=== PATIENT | female | born 2000 | race American Indian/Alaskan Native ===

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

== ENCOUNTER 2018-02-24 17:05 | Outpatient (CLI) | payer MEDICAID, OTHER ==
[2018-02-24 18:32] LABS: Amorphous Crystals,Urine Few; Bacteria,Urine 2+ /HPF (Negative); Bilirubin,Urine NEG (Negative); Blood,Urine NEG (Negative); Calcium Oxalate Crystals,Urine 3+; Color,Urine Yellow (Yellow); Mucus,Urine 1+ /HPF
[2018-02-24 18:35] VITALS: BP 109/64
[2018-02-24] MEDS ORDERED: TYLENOL PO ONE (19:06)
== END 2018-02-24 19:20 | disposition home or self-care (01) ==
LOC: TRG 17:05
PROVIDERS: ATTEND Obstetrics & Gynecology
DX: O47.03 False labor before 37 completed weeks of gestation, third trimester (principal); Z3A.31 31 weeks gestation of pregnancy
CPT/HCPCS: 59025; 81001

== ENCOUNTER 2018-03-23 07:47 | Outpatient (CLI) | payer MEDICAID ==
[2018-03-23 08:50] LABS: Bacteria,Urine 4+ /HPF (Negative); Bilirubin,Urine NEG (Negative); Blood,Urine NEG (Negative); Color,Urine Yellow (Yellow); Mucus,Urine FEW /HPF; Protein,Urine <15 mg/dL mg/dL (Negative); Urobilinogen,Urine < 2.0 mg/dL (<2.0)
[2018-03-23] MEDS ORDERED: LACTATED RINGERS 500 ML IV ONE (09:00)
[2018-03-23 09:18] VITALS: BP 107/63
[2018-03-23] MEDS ORDERED: TYLENOL PO PRN (09:27)
--- NOTE | 2018-03-24 06:56 | Ultrasound Report ---
FINAL REPORT EXAM: US OB > = 14 WEEKS FETUS HISTORY: well being COMPARISONS: None. FINDINGS: Transabdominal grayscale, color Doppler and M-mode 3rd trimester limited ultrasound Single living intrauterine in cephalic presentation with recorded cardiac activity of 138 beats per minute. The placenta is posterior. No evident previa on this examination. The cervix appears closed and measures approximately 4 cm in length. A 13 millimeter hypoechoic nonvascular areas noted within the posterior fundal portion of the placenta, which most likely represents a venous mello. Amniotic fluid volume is subjectively normal and amniotic fluid index is approximately 9 cm. Biparietal diameter is 8.5 cm Head circumference is 31.1 cm Abdominal circumference is 30 cm Femoral length is 7 cm Composite measurements results in estimated gestational age of 34 weeks 5 days, which is concordant with prior established dating of 35 weeks 0 days Estimated weight is 2454 grams, which corresponds to the 33rd percentile. IMPRESSION: Single living intrauterine with normal amniotic fluid index and concordant size and dates, as detailed above.
== END 2018-03-23 12:29 | disposition home or self-care (01) ==
LOC: TRG 07:47
PROVIDERS: ATTEND Obstetrics & Gynecology Gynecology
DX: O47.03 False labor before 37 completed weeks of gestation, third trimester (principal); Z3A.35 35 weeks gestation of pregnancy
CPT/HCPCS: 59025; 76805; 81001

== ENCOUNTER 2018-04-07 00:55 | Outpatient (CLI) | payer MEDICAID ==
[2018-04-07] MEDS ORDERED: LACTATED RINGERS 1,000 ML ONE (01:43)
[2018-04-07] MEDS ORDERED: LACTATED RINGERS 1,000 ML IV ONE (01:54)
[2018-04-07 01:57] LABS: Bilirubin,Urine NEG (Negative); Blood,Urine NEG (Negative); Color,Urine Yellow (Yellow); Protein,Urine <15 mg/dL mg/dL (Negative); Urobilinogen,Urine < 2.0 mg/dL (<2.0)
[2018-04-07 02:41] VITALS: BP 121/72
== END 2018-04-07 02:55 | disposition home or self-care (01) ==
LOC: TRG 00:55
PROVIDERS: ATTEND Obstetrics & Gynecology
DX: O26.893 Other specified pregnancy related conditions, third trimester (principal); O47.1 False labor at or after 37 completed weeks of gestation; R51 Headache; Z3A.37 37 weeks gestation of pregnancy
CPT/HCPCS: 59025; 81001; 96360; J7120

== ENCOUNTER 2018-05-18 18:56 | Emergency (ER) | payer MEDICAID ==
[2018-05-18 19:15] VITALS: BP 130/79
== END 2018-05-18 22:37 | disposition left against medical advice (07) ==
LOC: ED 18:56
DX: Z53.21 Procedure and treatment not carried out due to patient leaving prior to being seen by health care provider (principal)

== ENCOUNTER 2019-01-16 11:12 | Outpatient (CLI) | payer MEDICAID ==
[2019-01-16] MEDS ORDERED: IMODIUM PO STA (11:48)
[2019-01-16 11:54] VITALS: BP 103/53
[2019-01-16] MEDS ORDERED: LACTATED RINGERS 500 ML IV ONE (12:00)
[2019-01-16 12:26] LABS: Bilirubin,Urine NEG (Negative); Blood,Urine NEG (Negative); Color,Urine Yellow (Yellow); Mucus,Urine FEW /HPF; Protein,Urine <15 mg/dL mg/dL (Negative)
[2019-01-16 12:32] LABS: Amphetamine Screen,Urine PRESUMPTIVE NEGATIVE; Benzodiazepines Screen,Urine PRESUMPTIVE NEGATIVE; Cocaine Screen,Urine PRESUMPTIVE NEGATIVE; Methadone Screen,Urine PRESUMPTIVE NEGATIVE; Opiate Screen,Urine PRESUMPTIVE NEGATIVE
[2019-01-16 12:48] LABS: Cannabinoid Screen,Urine PRESUMPTIVE POSITIVE
== END 2019-01-16 14:09 | disposition home or self-care (01) ==
LOC: TRG 11:12
PROVIDERS: ATTEND Obstetrics & Gynecology
DX: O47.02 False labor before 37 completed weeks of gestation, second trimester (principal); Z3A.20 20 weeks gestation of pregnancy
CPT/HCPCS: 80307; 81001; 96360; J7120

== ENCOUNTER 2019-03-13 20:56 | Outpatient (CLI) | payer MEDICAID, OTHER ==
[2019-03-13] MEDS ORDERED: LACTATED RINGERS 1,000 ML IV ONE (21:01)
[2019-03-13 22:16] LABS: Bacteria,Urine 1+ /HPF (Negative); Bilirubin,Urine NEG (Negative); Blood,Urine NEG (Negative); Color,Urine Yellow (Yellow); Mucus,Urine FEW /HPF; Protein,Urine <15 mg/dL mg/dL (Negative)
[2019-03-13] MEDS ORDERED: XYLOCAINE 1% MPF 5 mL INFILTRATI ONE (22:35)
[2019-03-13] MEDS ORDERED: ROCEPHIN/NS 1 GM/50 ML 1 GM/50 ML BAG IV ONE (22:45)
[2019-03-13 23:32] VITALS: BP 105/57
== END 2019-03-13 23:58 | disposition home or self-care (01) ==
LOC: TRG 20:56
PROVIDERS: ATTEND Obstetrics & Gynecology
DX: O26.893 Other specified pregnancy related conditions, third trimester (principal); M54.5 Low back pain; M79.651 Pain in right thigh; Z3A.28 28 weeks gestation of pregnancy; Z87.891 Personal history of nicotine dependence
CPT/HCPCS: 59025; 81001; 96361; 96365; J0696; J7120; 96360

== ENCOUNTER 2019-04-06 18:33 | Outpatient (CLI) | payer OTHER ==
[2019-04-06 20:39] VITALS: BP 99/59
[2019-04-06 21:51] LABS: Amorphous Crystals,Urine 2+; Bilirubin,Urine NEG (Negative); Blood,Urine SM (Negative); Color,Urine Yellow (Yellow); Mucus,Urine FEW /HPF; Protein,Urine <15 mg/dL mg/dL (Negative)
[2019-04-06] MEDS ORDERED: LACTATED RINGERS 1,000 ML IV ONE (22:46)
[2019-04-06] MEDS ORDERED: ANCEF/NS 1 GM/50 ML 1 GM/50 ML BAG IV ONE (23:45)
== END 2019-04-06 23:55 | disposition home or self-care (01) ==
LOC: TRG 18:33
PROVIDERS: ATTEND Obstetrics & Gynecology
DX: O26.893 Other specified pregnancy related conditions, third trimester (principal); R10.2 Pelvic and perineal pain; O47.03 False labor before 37 completed weeks of gestation, third trimester; O99.343 Other mental disorders complicating pregnancy, third trimester; F41.0 Panic disorder [episodic paroxysmal anxiety]; Z87.891 Personal history of nicotine dependence; Z3A.31 31 weeks gestation of pregnancy
CPT/HCPCS: 59025; 81001; 87086; 96365; J0690; J7120; 96360; 96366

== ENCOUNTER 2019-06-09 10:22 | Emergency (ER) | payer MEDICAID, OTHER ==
[2019-06-09 10:45] VITALS: BP 112/39
--- NOTE | 2019-06-09 11:37 | Emergency Department Report ---
ED General Adult HPI - General Chief complaint: Wound/Laceration Stated complaint: C SECTION/HEADACHE/STOMACH PAIN Time Seen by Provider: 06/09/19 11:23 Source: patient Mode of arrival: Wheelchair Limitations: No Limitations - History of Present Illness Initial comments: Patient is 18 years old female with no significant past medical history. Patient is 7 days . Status post at [facility]. Patient presented to the ER stating that she is having drainage from her surgical scar. Patient think that her surgical scar is open. Patient denied any fever or chills. Patient also denied any nausea or vomiting. - Related Data Home Medications Medication Instructions Recorded Confirmed Last Taken Aspirin [Aspirin BABY CHEW TAB] 81 mg PO QDAY 03/13/19 03/13/19 2 Days Ago ~03/11/19 Allergies Allergy/AdvReac Type Severity Reaction Status Date / Time No Known Allergies Allergy Verified 06/09/19 10:23 ED Review of Systems ROS: Stated complaint: C SECTION/HEADACHE/STOMACH PAIN Other details as noted in HPI Comment: All other systems reviewed and negative Constitutional: denies: chills, fever Respiratory: denies: cough, shortness of breath, SOB with exertion Cardiovascular: denies: chest pain, palpitations Gastrointestinal: denies: abdominal pain, nausea, vomiting, diarrhea, constipation, hematemesis Musculoskeletal: denies: back pain ED Past Medical Hx - Past Medical History Previous Medical History?: Yes Hx Hypertension: No Hx CVA: No Hx Diabetes: No Hx Deep Vein Thrombosis: No Hx Renal Disease: No Hx Sickle Cell Disease: No Hx Seizures: No Hx Asthma: No Hx HIV: No Additional medical history: obesity, heart failure 03/2018 r/t pregnany and childbirth - Surgical History Past Surgical History?: Yes Additional Surgical History: tonsillectomy, - Social History Smoking Status: Never Smoker Substance Use Type: None - Medications Home Medications: Home Medications Medication Instructions Recorded Confirmed Last Taken Type Aspirin [Aspirin BABY CHEW TAB] 81 mg PO QDAY 03/13/19 03/13/19 2 Days Ago History ~03/11/19 ED Physical Exam - General Limitations: No Limitations General appearance: alert, in no apparent distress - Head Head exam: Present: atraumatic, normocephalic, normal inspection - Eye Eye exam: Present: normal appearance - ENT ENT exam: Present: normal exam, normal orophraynx, mucous membranes moist - Neck Neck exam: Present: normal inspection. Absent: tenderness, meningismus - Respiratory Respiratory exam: Present: normal lung sounds bilaterally - Cardiovascular Cardiovascular Exam: Present: regular rate, normal rhythm, normal heart sounds - GI/Abdominal GI/Abdominal exam: Present: soft, normal bowel sounds, other ( section surgical scar is slightly elevated with greenish discharge but no wound dehiscence.). Absent: distended, tenderness, guarding, rebound, rigid - Extremities Exam Extremities exam: Present: normal inspection, full ROM, normal capillary refill - Back Exam Back exam: Present: normal inspection, full ROM. Absent: CVA tenderness (R), CVA tenderness (L), muscle spasm, paraspinal tenderness, vertebral tenderness - Neurological Exam Neurological exam: Present: alert, oriented X3, CN II-XII intact - Psychiatric Psychiatric exam: Present: normal mood - Skin Skin exam: Present: warm ED Course Vital Signs 06/09/19 10:41 Temperature 98.4 F Pulse Rate 63 Respiratory 16 Rate Blood Pressure 112/39 [Left] O2 Sat by Pulse 96 Oximetry ED Medical Decision Making - Lab Data Result diagrams: 06/09/19 11:41 06/09/19 11:41 - Medical Decision Making Patient is 18 years old female with no significant past medical history. Patient is 7 days . Status post at [facility]. Patient presented to the ER stating that she is having drainage from her surgical scar. Patient think that her surgical scar is open. Patient denied any fever or chills. Patient also denied any nausea or vomiting. section wound examined and no evidence of wound dehiscence but there is a slight greenish discharge. Labs reviewed and is unremarkable. Patient will be treated with clindamycin and advised to follow-up with our OB doctor in the next 2-3 days and also advised to return to the ER if started developing any other symptoms or her symptoms are not improved. Critical care attestation.: If time is entered above; I have spent that time in minutes in the direct care of this critically ill patient, excluding procedure time. ED Disposition Clinical Impression: Surgical wound infection Disposition: DC-01 TO HOME OR SELFCARE Is pt being admited?: No Condition: Stable Instructions: Wound Infection (ED) Additional Instructions: Please follow up with your OB doctor in the next 2-3 days. Referrals: PRIMARY CARE, [Primary Care Provider] - 3-5 Days
[2019-06-09] MEDS ORDERED: MORPHINE IM ONE (11:40)
[2019-06-09 11:50] LABS: Basophils % (Auto) 0.5 % (0.0-1.8); Eosinophils # (Auto) 0.2 K/mm3 (0.0-0.4); Eosinophils % (Auto) 2.6 % (0.0-4.3); Hematocrit 32.7 % (30.3-42.9); Lymphocytes # (Auto) 2.5 K/mm3 (1.2-5.4); Mean Corpuscular HGB Conc 34 % (30-34); Mean Corpuscular Volume 79 fl (79-97); Monocytes # (Auto) 0.8 K/mm3 (0.0-0.8); Monocytes % (Auto) 9.4 % (0.0-7.3); Platelet Count 204 K/mm3 (140-440); Red Blood Count 4.14 M/mm3 (3.65-5.03); Red Cell Distribution Width 15.8 % (13.2-15.2)
[2019-06-09 12:04] LABS: Alanine Aminotransferase 10 units/L (7-56); Albumin 3.4 g/dL (3.9-5); BUN/Creatinine Ratio 10; Blood Urea Nitrogen 6 mg/dL (7-17); Calcium 8.9 mg/dL (8.4-10.2); Hemolysis Index 6
== END 2019-06-09 12:55 | disposition home or self-care (01) ==
LOC: ED 10:22
DX: O86.01 Infection of obstetric surgical wound, superficial incisional site (principal); Z98.890 Other specified postprocedural states; Z79.82 Long term (current) use of aspirin
CPT/HCPCS: 36415; 80053; 85025; 96372; 99283; J2270

== ENCOUNTER 2020-01-10 18:50 | Emergency (ER) | payer SELFPAY ==
--- NOTE | 2020-01-10 20:06 | Event Note ---
ED Screening Note Date of service: 01/10/20 Time: 20:01 ED Screening Note: This initial assessment/diagnostic orders/clinical plan/treatment(s) is/are subject to change based on patients health status, clinical progression and re- assessment by fellow clinical providers in the ED. Further treatment and workup at subsequent clinical providers discretion. Patient/guardian urged not to elope from the ED as their condition may be serious if not clinically assessed and managed. Initial orders include: 19yo F states that she has flu-like symptoms, SOB and difficulty breathing that have been present for 2 weeks. She states that coughing and inhaling makes her chest hurt worse.
[2020-01-10] MEDS ORDERED: HYOSCYAMINE SUBL 0.125 MG TAB SL ONE (21:11)
[2020-01-10] MEDS ORDERED: ONDANSETRON 4 MG ODT TAB PO ONE (21:11)
--- NOTE | 2020-01-10 21:29 | Emergency Department Report ---
- General Chief Complaint: Upper Respiratory Infection Stated Complaint: FEVER,BODYACHES,HOT & COLD Time Seen by Provider: 01/10/20 20:00 Source: patient Mode of arrival: Ambulatory Limitations: No Limitations - History of Present Illness Initial Comments: Patient is a 19-year-old female presents emergency room complaints of a fever that began yesterday. She states that yesterday she also had nausea, vomiting, diarrhea. She denies any vomiting or diarrhea today. She is able to tolerate p.o. intake. She states that she has also had a productive cough for few days. She states that she also has some suprapubic abdominal discomfort. She denies any sore throat, ear pain, urinary symptoms. She denies any known sick contacts or recent travel. She has a past medical history of cardiomyopathy. No allergies to medications. Last menstrual cycle December 23, 2019. - Related Data Home Medications Medication Instructions Recorded Confirmed Last Taken Aspirin [Aspirin BABY CHEW TAB] 81 mg PO QDAY 03/13/19 03/13/19 2 Days Ago ~03/11/19 Previous Rx's Medication Instructions Recorded Last Taken Type Clindamycin [Clindamycin CAP] 300 mg PO Q8H #21 cap 06/09/19 Unknown Rx Ondansetron [Zofran Odt] 4 mg PO Q8HR PRN #14 tab.rapdis 06/09/19 Unknown Rx traMADoL [Ultram 50 MG tab] 50 mg PO Q4HR PRN #14 tablet 06/09/19 Unknown Rx Ondansetron [Zofran Odt] 4 mg PO Q8HR PRN #14 tab.rapdis 01/10/20 Unknown Rx Allergies Allergy/AdvReac Type Severity Reaction Status Date / Time No Known Allergies Allergy Verified 06/09/19 10:23 ED Review of Systems ROS: Stated complaint: FEVER,BODYACHES,HOT & COLD Other details as noted in HPI Comment: All other systems reviewed and negative ED Past Medical Hx - Past Medical History Previous Medical History?: Yes Hx Hypertension: No Hx CVA: No Hx Diabetes: No Hx Deep Vein Thrombosis: No Hx Renal Disease: No Hx Sickle Cell Disease: No Hx Seizures: No Hx Asthma: No Hx HIV: No Additional medical history: obesity, heart failure 03/2018 r/t pregnany and childbirth - Surgical History Past Surgical History?: Yes Additional Surgical History: tonsillectomy, - Social History Smoking Status: Current Every Day Smoker Substance Use Type: Alcohol - Medications Home Medications: Home Medications Medication Instructions Recorded Confirmed Last Taken Type Aspirin [Aspirin BABY CHEW TAB] 81 mg PO QDAY 03/13/19 03/13/19 2 Days Ago History ~03/11/19 Clindamycin [Clindamycin CAP] 300 mg PO Q8H #21 cap 06/09/19 Unknown Rx Ondansetron [Zofran Odt] 4 mg PO Q8HR PRN #14 tab.rapdis 06/09/19 Unknown Rx traMADoL [Ultram 50 MG tab] 50 mg PO Q4HR PRN #14 tablet 06/09/19 Unknown Rx Ondansetron [Zofran Odt] 4 mg PO Q8HR PRN #14 tab.rapdis 01/10/20 Unknown Rx ED Physical Exam - General Limitations: No Limitations General appearance: alert, in no apparent distress - Head Head exam: Present: atraumatic, normocephalic - Eye Eye exam: Present: normal appearance - ENT ENT exam: Present: normal orophraynx, mucous membranes moist, TM's normal bilaterally, normal external ear exam - Respiratory Respiratory exam: Present: normal lung sounds bilaterally. Absent: respiratory distress, wheezes, rhonchi, stridor, chest wall tenderness, accessory muscle use, decreased breath sounds, prolonged expiratory - Cardiovascular Cardiovascular Exam: Present: regular rate, normal rhythm, normal heart sounds. Absent: systolic murmur, diastolic murmur, rubs, gallop - GI/Abdominal GI/Abdominal exam: Present: soft, normal bowel sounds. Absent: distended, tenderness, guarding, rebound, rigid - Neurological Exam Neurological exam: Present: alert, oriented X3 - Psychiatric Psychiatric exam: Present: normal affect, normal mood - Skin Skin exam: Present: warm, dry, intact ED Course Vital Signs 01/10/20 01/10/20 19:53 22:34 Temperature 99.9 F H 98.6 F Pulse Rate 79 54 L Respiratory 16 16 Rate Blood Pressure 100/62 111/82 [Right] O2 Sat by Pulse 99 100 Oximetry ED Medical Decision Making - Lab Data Result diagrams: 01/10/20 21:14 01/10/20 21:14 Lab Results 01/10/20 01/10/20 01/10/20 Range/Units 21:14 21:14 21:14 WBC 5.1 (4.5-11.0) K/mm3 RBC 4.45 (3.65-5.03) M/mm3 Hgb 12.3 (10.1-14.3) gm/dl Hct 38.3 (30.3-42.9) % MCV 86 (79-97) fl MCH 28 (28-32) pg MCHC 32 (30-34) % RDW 16.5 H (13.2-15.2) % Plt Count 111 L (140-440) K/mm3 [place] % (Auto) Party Plan Sales Director Add Manual Diff Complete Total Counted 100 Seg Neuts % (Manual) 55.0 (40.0-70.0) % Band Neutrophils % 0 % Lymphocytes % (Manual) 28.0 (13.4-35.0) % Reactive Lymphs % (Man) 0 % Monocytes % (Manual) 14.0 H (0.0-7.3) % Eosinophils % (Manual) 1.0 (0.0-4.3) % Basophils % (Manual) 2.0 H (0.0-1.8) % Metamyelocytes % 0 % Myelocytes % 0 % Promyelocytes % 0 % Blast Cells % 0 % Nucleated RBC % Not Reportable Seg Neutrophils # Man 2.8 (1.8-7.7) K/mm3 Band Neutrophils # 0.0 K/mm3 Lymphocytes # (Manual) 1.4 (1.2-5.4) K/mm3 Abs React Lymphs (Man) 0.0 K/mm3 Monocytes # (Manual) 0.7 (0.0-0.8) K/mm3 Eosinophils # (Manual) 0.1 (0.0-0.4) K/mm3 Basophils # (Manual) 0.1 (0.0-0.1) K/mm3 Metamyelocytes # 0.0 K/mm3 Myelocytes # 0.0 K/mm3 Promyelocytes # 0.0 K/mm3 Blast Cells # 0.0 K/mm3 WBC Morphology Not Reportable Hypersegmented Neuts Not Reportable Hyposegmented Neuts Not Reportable Hypogranular Neuts Not Reportable Smudge Cells Not Reportable Toxic Granulation Not Reportable Toxic Vacuolation Not Reportable Dohle Bodies Not Reportable Pelger-Huet Anomaly Not Reportable Joao Rods Not Reportable Platelet Estimate Consistent w auto Clumped Platelets Not Reportable Plt Clumps, EDTA Not Reportable Large Platelets Not Reportable Giant Platelets Not Reportable Platelet Satelliting Not Reportable Plt Morphology Comment Not Reportable RBC Morphology Not Reportable Dimorphic RBCs Not Reportable Polychromasia Not Reportable Hypochromasia Not Reportable Poikilocytosis Not Reportable Anisocytosis Few Microcytosis Not Reportable Macrocytosis Not Reportable Spherocytes Not Reportable Pappenheimer Bodies Not Reportable Sickle Cells Not Reportable Target Cells Not Reportable Tear Drop Cells Not Reportable Ovalocytes Not Reportable Stomatocytes Rare Helmet Cells Not Reportable [place] Bodies Not Reportable Stilwell Rings Not Reportable [place] Cells Not Reportable Bite Cells Not Reportable Crenated Cell Not Reportable Elliptocytes Not Reportable Acanthocytes (Spur) Not Reportable Rouleaux Not Reportable Hemoglobin C Crystals Not Reportable Schistocytes Not Reportable Malaria parasites Not Reportable Adam Bodies Not Reportable Hem Pathologist Commnt No Sodium 138 (137-145) mmol/L Potassium 4.0 (3.6-5.0) mmol/L Chloride 103.3 (98-107) mmol/L Carbon Dioxide 20 L (22-30) mmol/L Anion Gap 19 mmol/L BUN 7 (7-17) mg/dL Creatinine 0.6 L (0.7-1.2) mg/dL Estimated GFR > 60 ml/min BUN/Creatinine Ratio 12 % Glucose 80 (65-100) mg/dL Calcium 8.3 L (8.4-10.2) mg/dL Total Bilirubin 0.20 (0.1-1.2) mg/dL AST 23 (5-40) units/L ALT 22 (7-56) units/L Alkaline Phosphatase 68 (35-129) units/L Total Protein 7.1 (6.3-8.2) g/dL Albumin 3.9 (3.9-5) g/dL Albumin/Globulin Ratio 1.2 % Lipase 20 (13-60) units/L HCG, Qual Negative (Negative) Urine Color (Yellow) Urine Turbidity (Clear) Urine pH (5.0-7.0) Ur Specific [place] (1.003-1.030) Urine Protein (Negative) mg/dL Urine Glucose (UA) (Negative) mg/dL Urine Ketones (Negative) mg/dL Urine Blood (Negative) Urine Nitrite (Negative) Urine Bilirubin (Negative) Urine Urobilinogen (<2.0) mg/dL Ur Leukocyte Esterase (Negative) Urine WBC (Auto) (0.0-6.0) /HPF Urine RBC (Auto) (0.0-6.0) /HPF U Epithel Cells (Auto) (0-13.0) /HPF Urine Mucus /HPF Urine HCG, Qual (Negative) Influenza A (Rapid) (Negative) Influenza B (Rapid) (Negative) 01/10/20 01/10/20 Range/Units Unknown Unknown WBC (4.5-11.0) K/mm3 RBC (3.65-5.03) M/mm3 Hgb (10.1-14.3) gm/dl Hct (30.3-42.9) % MCV (79-97) fl MCH (28-32) pg MCHC (30-34) % RDW (13.2-15.2) % Plt Count (140-440) K/mm3 [place] % (Auto) Add Manual Diff Total Counted Seg Neuts % (Manual) (40.0-70.0) % Band Neutrophils % % Lymphocytes % (Manual) (13.4-35.0) % Reactive Lymphs % (Man) % Monocytes % (Manual) (0.0-7.3) % Eosinophils % (Manual) (0.0-4.3) % Basophils % (Manual) (0.0-1.8) % Metamyelocytes % % Myelocytes % % Promyelocytes % % Blast Cells % % Nucleated RBC % Seg Neutrophils # Man (1.8-7.7) K/mm3 Band Neutrophils # K/mm3 Lymphocytes # (Manual) (1.2-5.4) K/mm3 Abs React Lymphs (Man) K/mm3 Monocytes # (Manual) (0.0-0.8) K/mm3 Eosinophils # (Manual) (0.0-0.4) K/mm3 Basophils # (Manual) (0.0-0.1) K/mm3 Metamyelocytes # K/mm3 Myelocytes # K/mm3 Promyelocytes # K/mm3 Blast Cells # K/mm3 WBC Morphology Hypersegmented Neuts Hyposegmented Neuts Hypogranular Neuts Smudge Cells Toxic Granulation Toxic Vacuolation Dohle Bodies Pelger-Huet Anomaly Joao Rods Platelet Estimate Clumped Platelets Plt Clumps, EDTA Large Platelets Giant Platelets Platelet Satelliting Plt Morphology Comment RBC Morphology Dimorphic RBCs Polychromasia Hypochromasia Poikilocytosis Anisocytosis Microcytosis Macrocytosis Spherocytes Pappenheimer Bodies Sickle Cells Target Cells Tear Drop Cells Ovalocytes Stomatocytes Helmet Cells [place] Bodies [place]ilwell Rings Radhika Cells Bite Cells Crenated Cell Elliptocytes Acanthocytes (Spur) Rouleaux Hemoglobin C Crystals Schistocytes Malaria parasites Adam Bodies Hem Pathologist Commnt Sodium (137-145) mmol/L Potassium (3.6-5.0) mmol/L Chloride (98-107) mmol/L Carbon Dioxide (22-30) mmol/L Anion Gap mmol/L BUN (7-17) mg/dL Creatinine (0.7-1.2) mg/dL Estimated GFR ml/min BUN/Creatinine Ratio % Glucose (65-100) mg/dL Calcium (8.4-10.2) mg/dL Total Bilirubin (0.1-1.2) mg/dL AST (5-40) units/L ALT (7-56) units/L Alkaline Phosphatase (35-129) units/L Total Protein (6.3-8.2) g/dL Albumin (3.9-5) g/dL Albumin/Globulin Ratio % Lipase (13-60) units/L HCG, Qual (Negative) Urine Color Yellow (Yellow) Urine Turbidity Clear (Clear) Urine pH 7.0 (5.0-7.0) Ur Specific [place] 1.019 (1.003-1.030) Urine Protein <15 mg/dl (Negative) mg/dL Urine Glucose (UA) Neg (Negative) mg/dL Urine Ketones Neg (Negative) mg/dL Urine Blood Neg (Negative) Urine Nitrite Neg (Negative) Urine Bilirubin Neg (Negative) Urine Urobilinogen < 2.0 (<2.0) mg/dL Ur Leukocyte Esterase Tr (Negative) Urine WBC (Auto) 1.0 (0.0-6.0) /HPF Urine RBC (Auto) 2.0 (0.0-6.0) /HPF U Epithel Cells (Auto) 11.0 (0-13.0) /HPF Urine Mucus Few /HPF Urine HCG, Qual Negative (Negative) Influenza A (Rapid) Negative (Negative) Influenza B (Rapid) Negative (Negative) Vital Signs 01/10/20 01/10/20 19:53 22:34 Temperature 99.9 F H 98.6 F Pulse Rate 79 54 L Respiratory 16 16 Rate Blood Pressure 100/62 111/82 [Right] O2 Sat by Pulse 99 100 Oximetry - Radiology Data Radiology results: report reviewed CHEST 2 VIEWS INDICATION / CLINICAL INFORMATION: MAIN: productive cough, n/v/d, fever; Pt c/o cough, fever, and body aches x 1 week and N/V/D since yesterday. Denies vomiting today.. COMPARISON: Chest radiograph 08/11/2017 FINDINGS: SUPPORT DEVICES: None. HEART / MEDIASTINUM: No significant abnormality. LUNGS / PLEURA: No significant pulmonary or pleural abnormality. No pneumothorax. ADDITIONAL FINDINGS: No significant additional findings. IMPRESSION: No acute finding. No significant change. Signer Name: Victor Hugo Pérez MD Signed: 01/10/2020 10:40 PM Workstation Name: [id number] Transcribed By: MALVIN Dictated By: Victor Hugo Pérez MD Electronically Authenticated By: Victor Hugo Pérez MD Signed Date/Time: 01/10/202239 DD/ 37 TD/TT: - Medical Decision Making Patient is a 19-year-old female presents emergency room complaints of a fever that began yesterday. She states that yesterday she also had nausea, vomiting, diarrhea. She denies any vomiting or diarrhea today. She is able to tolerate p.o. intake. She states that she has also had a productive cough for few days. She states that she also has some suprapubic abdominal discomfort. She denies any sore throat, ear pain, urinary symptoms. She denies any known sick contacts or recent travel. She has a past medical history of cardiomyopathy. No allergies to medications. Last menstrual cycle December 23, 2019. Initial vitals with mild low-grade temp which improved upon repeat. Labs are stable. hCG is negative. Rapid flu is negative. UA is within normal limits. Chest x-ray with no acute findings. Patient given Zofran and Bentyl and symptoms improved. Patient is able to tolerate p.o. intake. Breath sounds are clear bilaterally, no wheezing, no rales, no rhonchi. Patient given prescription for Zofran. Examination most consistent with viral illness. Patient does not have any advised patient May take medication as needed. May use Mucinex or TheraFlu [id number]. Increase your fluid intake. eat a bland diet. pt does not have any Risk factors for COVID 19. may take Tylenol as needed for fever. Please quarantine for the next 2 weeks. Please do not go out until you have been fever free for 48-hours. Please wash your hands frequently. Please wear a mask at home if you are around others. Follow-up with a primary care doctor in the next 3 days for reexamination. Return to the emergency room immediately for any new or worsening symptoms including but not limited to increasing fevers, shortness of breath, difficulty breathing, unable to tolerate by mouth intake, etc. - Differential Diagnosis gastroenteritis, viral syndrome, URI, PNA, food poisoning, UTI Critical care attestation.: If time is entered above; I have spent that time in minutes in the direct care of this critically ill patient, excluding procedure time. ED Disposition Clinical Impression: Viral illness, Nausea vomiting and diarrhea Disposition: DC-01 TO HOME OR SELFCARE Is pt being admited?: No Does the pt Need Aspirin: No Condition: Stable Instructions: Viral Syndrome (ED) Additional Instructions: May take medication as needed. May use Mucinex or TheraFlu [id number]. Increase your fluid intake. eat a bland diet. May take Tylenol as needed for fever. Please quarantine for the next 2 weeks. Please do not go out until you have been fever free for 48-hours. Please wash your hands frequently. Please wear a mask at home if you are around others. Follow-up with a primary care doctor in the next 3 days for reexamination. Return to the emergency room immediately for any new or worsening symptoms including but not limited to increasing fevers, shortness of breath, difficulty breathing, unable to tolerate by mouth intake, etc. Prescriptions: Ondansetron [Zofran Odt] 4 mg PO Q8HR PRN #14 tab.rapdis PRN Reason: Nausea And Vomiting Referrals: JACK FERRIS MD [Staff Physician] - 3-5 Days [facility] [Outside] - 3-5 Days Forms: Work/School Release Form(ED) Time of Disposition: 22:58 Print Language: CITIZEN OF [place]
[2020-01-10] MEDS ORDERED: DICYCLOMINE 20 MG TAB PO ONE (21:42)
[2020-01-10 21:56] LABS: Hematocrit 38.3 % (30.3-42.9); Hemoglobin 12.3 gm/dl (10.1-14.3); Mean Corpuscular HGB Conc 32 % (30-34); Mean Corpuscular Volume 86 fl (79-97); Platelet Count 111 K/mm3 (140-440); Red Blood Count 4.45 M/mm3 (3.65-5.03); Red Cell Distribution Width 16.5 % (13.2-15.2)
[2020-01-10 21:57] LABS: Bilirubin,Urine NEG (Negative); Blood,Urine NEG (Negative); Color,Urine Yellow (Yellow); Mucus,Urine FEW /HPF; Protein,Urine <15 mg/dL mg/dL (Negative); Urobilinogen,Urine < 2.0 mg/dL (<2.0)
[2020-01-10 21:58] LABS: HCG Qualitative,Urine Negative (Negative)
[2020-01-10 22:16] LABS: Alanine Aminotransferase 22 units/L (7-56); Albumin 3.9 g/dL (3.9-5); BUN/Creatinine Ratio 12; Blood Urea Nitrogen 7 mg/dL (7-17); Calcium 8.3 mg/dL (8.4-10.2); Hemolysis Index 10
[2020-01-10 22:35] VITALS: BP 111/82
[2020-01-10 22:36] LABS: Total Cells Counted 100
[2020-01-10 22:37] LABS: Anisocytosis Few; Platelet Estimate Consistent w Auto; Stomatocytes Rare
--- NOTE | 2020-01-10 22:44 | XRay Report ---
CHEST 2 VIEWS INDICATION / CLINICAL INFORMATION: MAIN: productive cough, n/v/d, fever; Pt c/o cough, fever, and body aches x 1 week and N/V/D since . Denies vomiting today.. COMPARISON: Chest radiograph 08/11/2017 FINDINGS: SUPPORT DEVICES: None. HEART / MEDIASTINUM: No significant abnormality. LUNGS / PLEURA: No significant pulmonary or pleural abnormality. No pneumothorax. ADDITIONAL FINDINGS: No significant additional findings. IMPRESSION: No acute finding. No significant change. Signer Name: Victor Hugo Pérez MD Signed: 01/10/2020 10:40 PM Workstation Name: [id number]
== END 2020-01-10 23:05 | disposition home or self-care (01) ==
LOC: ED 18:50
DX: B34.9 Viral infection, unspecified (principal); R11.2 Nausea with vomiting, unspecified; R50.9 Fever, unspecified; R19.7 Diarrhea, unspecified; M79.18 Myalgia, other site; F17.200 Nicotine dependence, unspecified, uncomplicated; Z90.89 Acquired absence of other organs; Z98.890 Other specified postprocedural states; Z79.899 Other long term (current) drug therapy
CPT/HCPCS: 36415; 71046; 80053; 81001; 81025; 83690; 84703; 85007; 85025; 87400; 99284; Q0162